=== PATIENT | female | born 1930 | race Caucasian/White ===

== ENCOUNTER 2017-12-23 11:02 | Inpatient (IN) | payer OTHER ==
[~2017-12-23] VITALS: Ht 160 cm; Wt 78.0 kg
[~2017-12-23 11:02] MED LIST: APIX5TAB OR; DIGO1TAB35 PO; LOSA25TA9 PO
[2017-12-23 11:54] LABS: Basophils # (auto) 0 uL; Basophils % (auto) 0.2 % (0.0-2.0); Eosinophils # (auto) 0 uL; Eosinophils % (auto) 0.1 % (0.0-7.0); Hematocrit 40.2 % (36.0-46.0); Hemoglobin 13.4 g/dL (12.2-16.2); Lymphocytes # (auto) 0.8 uL; Mean Corpuscular Hemoglobin 32.1 pg (28.0-32.0); Mean Corpuscular Hgb Conc. 33.3 g/dL (32.0-36.0); Mean Corpuscular Volume 96.2 fL (80.0-100.0); Monocytes # (auto) 0.4 uL; Monocytes % (auto) 4.3 % (0.0-12.0); Neutrophils # (auto) 8.7 uL; Neutrophils % (auto) 87.4 % (37.0-80.0); Platelet Count (auto) 181 10^3/uL (140-450); Red Blood Cells 4.18 10^6/uL (4.0-5.20); Red Cell Distribution Width 14.3 % (11.8-14.3); White Blood Cell 9.9 10^3/uL (4.4-10.8)
[2017-12-23 12:38] LABS: Alanine Aminotransferase 29 U/L (13-56); Alkaline Phosphatase 90 U/L (45-117); Anion Gap 10 (5-15); Aspartate Aminotransferase 29 U/L (15-37); BUN/Creatinine Ratio 14.9; Bilirubin, Total 0.7 mg/dL (0.2-1.0); Blood Alcohol < 3.0 mg/dL (0-5); Blood Urea Nitrogen 15 mg/dL (7-18); Carbon Dioxide 19 mmol/L (21-32); Chloride 109 mmol/L (98-107); GFR African American 67 mL/min; GFR Non-African American 55 mL/min; Glucose 105 mg/dL (74-106); Potassium 3.4 mmol/L (3.5-5.1); Sodium 138 mmol/L (136-145); Total Protein 7.9 g/dL (6.4-8.2)
[2017-12-23] MEDS ORDERED: NITROGLYCERIN 0.4 MG SL TAB SL PRN (16:30)
[2017-12-23] MEDS ORDERED: cefTRIAXone 1GM/10ml IVPUSH 10 ML IV ONE (16:30)
[2017-12-23] MEDS ORDERED: MORPHINE SULFATE 4 MG/ML SYR/VIAL IV PRN (16:30)
[2017-12-23] MEDS: FLORASTOR (S. BOULARDII) 250 MG CAP PO SCH (17:05)
[2017-12-23] MEDS: SOD CHL 0.9%/ KCL 20MEQ 1,000 ML IV SCH (17:05)
[2017-12-23 17:36] LABS: Urine Bacteria FEW /hpf (None Seen); Urine Blood 2+ /uL (Negative); Urine Hyaline Cast FEW /lpf (0 - 2); Urine Mucus FEW (None Seen); Urine WBC 3 /hpf (0 - 5)
[2017-12-23] MEDS: VANCOMYCIN HCL 125MG/5ML ORAL SOL PO SCH (18:15)
[2017-12-23 21:00] VITALS: BP 138/66
[2017-12-23 21:46] VITALS: BP 138/66
[2017-12-23] MEDS: ACETAMINOPHEN 325 MG TAB PO PRN (22:02)
[2017-12-23] MEDS ORDERED: NITR0.4S29 SL (23:24)
[2017-12-23] MEDS ORDERED: ATO40T PO (23:24)
[2017-12-23 23:34] VITALS: BP 138/66
[2017-12-24] VITALS (7 sets, daily range): BP systolic 107–124; BP diastolic 44–63
[2017-12-24] MEDS: VANCOMYCIN HCL 125MG/5ML ORAL SOL PO SCH ×5 (00:12→23:56)
[2017-12-24 05:40] LABS: Basophils # (auto) 0 uL; Basophils % (auto) 0.2 % (0.0-2.0); Eosinophils # (auto) 0 uL; Hematocrit 37.4 % (36.0-46.0); Hemoglobin 12.7 g/dL (12.2-16.2); Lymphocytes # (auto) 0.4 uL; Lymphocytes % (auto) 3.6 % (10.0-50.0); Mean Corpuscular Hemoglobin 32.7 pg (28.0-32.0); Mean Corpuscular Hgb Conc. 33.9 g/dL (32.0-36.0); Mean Corpuscular Volume 96.3 fL (80.0-100.0); Monocytes # (auto) 0.3 uL; Neutrophils # (auto) 9.3 uL; Neutrophils % (auto) 93.2 % (37.0-80.0); Platelet Count (auto) 158 10^3/uL (140-450); Red Blood Cells 3.89 10^6/uL (4.0-5.20); Red Cell Distribution Width 14.8 % (11.8-14.3)
[2017-12-24 06:03] LABS: BUN/Creatinine Ratio 16.5; Calcium 7.3 mg/dL (8.5-10.1); Potassium 3.7 mmol/L (3.5-5.1)
[2017-12-24] MEDS: ACETAMINOPHEN 325 MG TAB PO PRN ×2 (06:25→16:57)
[2017-12-24] MEDS: SOD CHL 0.9%/ KCL 20MEQ 1,000 ML IV SCH (06:31)
[2017-12-24] MEDS ORDERED: cefTRIAXone 1GM/10ml IVPUSH 10 ML IV SCH (09:00)
[2017-12-24] MEDS ORDERED: MAGNESIUM SULFATE 1GM/100ML 100 ML IV PRN (09:00)
[2017-12-24] MEDS: SODIUM CHLORIDE 0.9% 1,000 ML IV SCH ×2 (09:00→23:56)
[2017-12-24] MEDS ORDERED: POTASSIUM CHL 20 Meq TABLET PO ONE (09:00)
[2017-12-24] MEDS ORDERED: SODIUM CHLORIDE 0.9% 250 ML IV ONE (09:15)
[2017-12-24] MEDS ORDERED: cloNIDine HCL 0.1 MG TAB PO PRN (09:15)
[2017-12-24] MEDS: PANTOPRAZOLE 40 MG TAB PO SCH (10:19)
[2017-12-24] MEDS: FLORASTOR (S. BOULARDII) 250 MG CAP PO SCH (10:19)
[2017-12-24] MEDS: ENOXAPARIN SOD 30 MG/0.3 ML SYRINGE SC SCH (10:19)
[2017-12-25 05:00] VITALS: BP 117/52
[2017-12-25] MEDS: VANCOMYCIN HCL 125MG/5ML ORAL SOL PO SCH ×3 (06:11→18:46)
[2017-12-25 06:19] LABS: BUN/Creatinine Ratio 25.8; Calcium 7.6 mg/dL (8.5-10.1); Magnesium 2.1 mg/dL (1.6-2.6); Potassium 4.1 mmol/L (3.5-5.1)
[2017-12-25 08:00] VITALS: BP 130/51
[2017-12-25] MEDS: PANTOPRAZOLE 40 MG TAB PO SCH (09:17)
[2017-12-25] MEDS: FLORASTOR (S. BOULARDII) 250 MG CAP PO SCH (09:17)
[2017-12-25] MEDS: DIPHENOXYLATE W/ATROPINE 2.5 MG TAB PO PRN ×2 (09:17→22:53)
[2017-12-25] MEDS: ENOXAPARIN SOD 30 MG/0.3 ML SYRINGE SC SCH (09:18)
[2017-12-25 09:29] VITALS: BP 130/51
[2017-12-25] MEDS: CHOLESTYRAMINE 4 GM POWDER GT SCH ×2 (11:11→22:40)
[2017-12-25] MEDS: SODIUM CHLORIDE 0.9% 1,000 ML IV SCH (12:40)
[2017-12-25 13:00] VITALS: BP 123/73
[2017-12-25] MEDS: metroNIDAZOLE 500MG/100ML 100 ML IV SCH ×2 (14:37→22:40)
[2017-12-25 16:56] VITALS: BP 117/61
[2017-12-25 22:00] VITALS: BP 127/62
[2017-12-26] MEDS: SODIUM CHLORIDE 0.9% 1,000 ML IV SCH ×2 (00:15→15:34)
[2017-12-26] MEDS: VANCOMYCIN HCL 125MG/5ML ORAL SOL PO SCH ×3 (00:15→12:38)
[2017-12-26 05:09] VITALS: BP 107/55
[2017-12-26] MEDS: metroNIDAZOLE 500MG/100ML 100 ML IV SCH ×3 (05:51→22:24)
[2017-12-26 07:05] LABS: Calcium 7.6 mg/dL (8.5-10.1); Magnesium 2.1 mg/dL (1.6-2.6); Potassium 3.8 mmol/L (3.5-5.1)
[2017-12-26 07:07] LABS: BUN/Creatinine Ratio 21.2
[2017-12-26] MEDS ORDERED: POTASSIUM CHL 10% (20 MEQ/15ML) 15ml ORAL SOLN PO ONE (07:30)
[2017-12-26 08:00] VITALS: BP 125/73
[2017-12-26 08:58] VITALS: BP 125/73
[2017-12-26] MEDS: FLORASTOR (S. BOULARDII) 250 MG CAP PO SCH (09:49)
[2017-12-26] MEDS: PANTOPRAZOLE 40 MG TAB PO SCH (09:50)
[2017-12-26] MEDS: ENOXAPARIN SOD 30 MG/0.3 ML SYRINGE SC SCH (09:52)
[2017-12-26] MEDS: CHOLESTYRAMINE 4 GM POWDER GT SCH ×2 (12:38→22:24)
[2017-12-26 13:00] VITALS: BP 110/65
[2017-12-26] MEDS: DIPHENOXYLATE W/ATROPINE 2.5 MG TAB PO PRN (14:09)
[2017-12-26 16:52] VITALS: BP 94/51
[2017-12-26] MEDS: VANCOMYCIN HCL 500MG/5ML ORAL SOL PO SCH ×2 (18:15→23:50)
[2017-12-26 22:00] VITALS: BP 113/64
[2017-12-27] MEDS: SODIUM CHLORIDE 0.9% 1,000 ML IV SCH ×2 (03:19→18:30)
[2017-12-27 05:00] VITALS: BP 99/57
[2017-12-27] MEDS: VANCOMYCIN HCL 500MG/5ML ORAL SOL PO SCH ×3 (05:45→18:00)
[2017-12-27] MEDS: metroNIDAZOLE 500MG/100ML 100 ML IV SCH ×3 (05:45→21:47)
[2017-12-27] MEDS: DIPHENOXYLATE W/ATROPINE 2.5 MG TAB PO PRN (05:46)
[2017-12-27 07:06] LABS: Basophils # (auto) 0 uL; Basophils % (auto) 0.3 % (0.0-2.0); Eosinophils # (auto) 0.2 uL; Eosinophils % (auto) 2.4 % (0.0-7.0); Hematocrit 29.3 % (36.0-46.0); Hemoglobin 10.1 g/dL (12.2-16.2); Lymphocytes # (auto) 1.3 uL; Lymphocytes % (auto) 20.1 % (10.0-50.0); Mean Corpuscular Hemoglobin 32.8 pg (28.0-32.0); Mean Corpuscular Hgb Conc. 34.4 g/dL (32.0-36.0); Mean Corpuscular Volume 95.3 fL (80.0-100.0); Monocytes # (auto) 0.4 uL; Monocytes % (auto) 6.6 % (0.0-12.0); Neutrophils # (auto) 4.6 uL; Neutrophils % (auto) 70.6 % (37.0-80.0); Platelet Count (auto) 151 10^3/uL (140-450); Red Blood Cells 3.08 10^6/uL (4.0-5.20); Red Cell Distribution Width 14.3 % (11.8-14.3); White Blood Cell 6.6 10^3/uL (4.4-10.8)
[2017-12-27 07:26] LABS: BUN/Creatinine Ratio 15.5; Calcium 7.4 mg/dL (8.5-10.1); Magnesium 1.8 mg/dL (1.6-2.6)
[2017-12-27 09:25] VITALS: BP 110/63
[2017-12-27] MEDS: CHOLESTYRAMINE 4 GM POWDER GT SCH ×2 (11:15→23:00)
[2017-12-27] MEDS: MAGNESIUM SULFATE 1GM/100ML 100 ML IV SCH ×2 (11:16→14:11)
[2017-12-27] MEDS: PANTOPRAZOLE 40 MG TAB PO SCH (11:16)
[2017-12-27] MEDS: ENOXAPARIN SOD 30 MG/0.3 ML SYRINGE SC SCH (11:16)
[2017-12-27] MEDS: FLORASTOR (S. BOULARDII) 250 MG CAP PO SCH (11:16)
[2017-12-27 13:46] VITALS: BP 115/67
[2017-12-27 16:47] VITALS: BP 112/47
[2017-12-27 22:00] VITALS: BP 119/58
[2017-12-28 05:00] VITALS: BP 132/67
[2017-12-28] MEDS: SODIUM CHLORIDE 0.9% 1,000 ML IV SCH ×2 (06:20→21:02)
[2017-12-28] MEDS: VANCOMYCIN HCL 500MG/5ML ORAL SOL PO SCH ×3 (06:30→13:28)
[2017-12-28] MEDS: metroNIDAZOLE 500MG/100ML 100 ML IV SCH ×3 (06:30→22:33)
[2017-12-28 06:46] LABS: BUN/Creatinine Ratio 10.9; Calcium 7.3 mg/dL (8.5-10.1); Magnesium 2.3 mg/dL (1.6-2.6); Potassium 3.9 mmol/L (3.5-5.1)
[2017-12-28 09:09] VITALS: BP 147/72
[2017-12-28] MEDS: FLORASTOR (S. BOULARDII) 250 MG CAP PO SCH (10:44)
[2017-12-28] MEDS: PANTOPRAZOLE 40 MG TAB PO SCH (10:45)
[2017-12-28] MEDS: CHOLESTYRAMINE 4 GM POWDER GT SCH ×2 (10:52→22:33)
[2017-12-28] MEDS: ENOXAPARIN SOD 30 MG/0.3 ML SYRINGE SC SCH (10:52)
[2017-12-28] MEDS ORDERED: POTASSIUM CHL 20 Meq TABLET PO ONE (11:45)
[2017-12-28 12:06] VITALS: BP 124/65
[2017-12-28 17:00] VITALS: BP 119/81
[2017-12-28] MEDS: VANCOMYCIN HCL 125MG/5ML ORAL SOL PO SCH ×2 (18:29→23:57)
[2017-12-28 22:00] VITALS: BP 114/54
[2017-12-29 05:06] VITALS: BP 116/57
[2017-12-29 05:58] LABS: BUN/Creatinine Ratio 6.2; Calcium 7.6 mg/dL (8.5-10.1); Magnesium 1.7 mg/dL (1.6-2.6); Potassium 4.2 mmol/L (3.5-5.1)
[2017-12-29] MEDS: VANCOMYCIN HCL 125MG/5ML ORAL SOL PO SCH ×2 (06:03→11:50)
[2017-12-29] MEDS: metroNIDAZOLE 500MG/100ML 100 ML IV SCH ×2 (06:04→14:00)
[2017-12-29 09:00] VITALS: BP 140/66
[2017-12-29] MEDS: PANTOPRAZOLE 40 MG TAB PO SCH (10:39)
[2017-12-29] MEDS: MAGNESIUM SULFATE 1GM/100ML 100 ML IV SCH ×2 (10:39→11:50)
[2017-12-29] MEDS: FLORASTOR (S. BOULARDII) 250 MG CAP PO SCH (10:39)
[2017-12-29] MEDS: SODIUM CHLORIDE 0.9% 1,000 ML IV SCH (10:40)
[2017-12-29] MEDS: ENOXAPARIN SOD 30 MG/0.3 ML SYRINGE SC SCH (10:40)
[2017-12-29] MEDS: CHOLESTYRAMINE 4 GM POWDER GT SCH (11:00)
[2017-12-29 13:00] VITALS: BP 129/56
== END 2017-12-29 14:51 | disposition home or self-care (01) | DRG 871 ==
LOC: ER 11:02 → EDUNIT# 11:02 → EDBD 11:02 → TELE 11:03 → TELE-CENTR 20:42
PROVIDERS: ADMIT Internal Medicine; ATTEND Family Medicine
DX: A41.9 Sepsis, unspecified organism (principal); G92 Toxic encephalopathy; A04.71 Enterocolitis due to Clostridium difficile, recurrent; G45.9 Transient cerebral ischemic attack, unspecified; I48.91 Unspecified atrial fibrillation; E86.0 Dehydration; F03.90 Unspecified dementia, unspecified severity, without behavioral disturbance, psychotic disturbance, mood disturbance, and anxiety; I67.2 Cerebral atherosclerosis; I10 Essential (primary) hypertension; Z90.710 Acquired absence of both cervix and uterus; Z79.01 Long term (current) use of anticoagulants; Z88.0 Allergy status to penicillin; Z90.49 Acquired absence of other specified parts of digestive tract
CPT/HCPCS: 36415; 70450; 71045; 74176; 80048; 80053; 80320; 81001; 83735; 84443; 84484; 85025; 87081; 87086; 87493; 93005; 93306; 96365; 96375; 97110; 97163; 99291; J3490

== ENCOUNTER → 2020-03-31 | Emergency (ER) | payer MEDICARE, OTHER ==
[~2020-03-31] VITALS: Ht 157.5 cm; Wt 72.6 kg
[~2020-03-31] MED LIST changes: +ATO40T PO; +LOSA25TA38 PO; -LOSA25TA9 PO; +NITR0.4S29 SL; +POTASSIUM EFFERVESENT TAB 25 MEQ PO ONE; +cefTRIAXone 1GM/50ML D5W 50 ML IV ONE
[2020-03-31 11:56] LABS: Basophils # (auto) 0 10 ^3/uL (0-0.2); Basophils % (auto) 0.6 % (0.0-2.0); Eosinophils # (auto) 0 10 ^3/uL (0-0.8); Eosinophils % (auto) 0.9 % (0.0-7.0); Hematocrit 43.7 % (36.0-46.0); Lymphocytes # (auto) 1.1 10 ^3/uL (0.4-5.4); Mean Corpuscular Hemoglobin 32.2 pg (28.0-32.0); Mean Corpuscular Volume 100.5 fL (80.0-100.0); Monocytes # (auto) 0.4 10 ^3/uL (0-1.3); Monocytes % (auto) 7.4 % (0.0-12.0); Neutrophils # (auto) 3.8 10 ^3/uL (1.6-8.6); Neutrophils % (auto) 70.1 % (37.0-80.0); Platelet Count (auto) 253 10^3/uL (140-450); Red Blood Cells 4.35 10^6/uL (4.0-5.20); Red Cell Distribution Width 13.5 % (11.8-14.3); White Blood Cell 5.4 10^3/uL (4.4-10.8)
[2020-03-31 12:33] LABS: Alanine Aminotransferase 13 U/L (13-56); Albumin 3.3 g/dL (3.4-5.0); Anion Gap 5 (5-15); Aspartate Aminotransferase 13 U/L (15-37); Blood Urea Nitrogen 11 mg/dL (7-18); Calcium 8.5 mg/dL (8.5-10.1); Carbon Dioxide 25 mmol/L (21-32); Chloride 110 mmol/L (98-107); Glucose 117 mg/dL (74-106); Potassium 3.4 mmol/L (3.5-5.1); Sodium 140 mmol/L (136-145)
[2020-03-31 12:38] LABS: Alkaline Phosphatase 68 U/L (45-117); Bilirubin, Total 0.7 mg/dL (0.2-1.0); GFR African American 60 mL/min; GFR Non-African American 50 mL/min; Total Protein 8.2 g/dL (6.4-8.2)
[2020-03-31 13:03] LABS: Urine Bacteria NONE SEEN /hpf (None Seen); Urine Blood 2+ /uL (Negative); Urine Mucus FEW (None Seen); Urine WBC 5 /hpf (0 - 5)
[2020-03-31 15:41] VITALS: BP 160/84
== END | disposition home or self-care (01) ==
LOC: EDUNIT# 10:41 → ER 11:04 → EDBD 11:04
DX: I48.91 Unspecified atrial fibrillation (principal); E78.5 Hyperlipidemia, unspecified; I10 Essential (primary) hypertension; Z90.49 Acquired absence of other specified parts of digestive tract; Z90.710 Acquired absence of both cervix and uterus; Z88.0 Allergy status to penicillin
CPT/HCPCS: 36415; 80053; 80162; 81001; 83880; 84484; 85025; 96365; 99285; J0696; 93005

== ENCOUNTER 2021-03-02 10:00 | Inpatient (IN) | payer MEDICARE, OTHER ==
[~2021-03-02] VITALS: Ht 172.7 cm; Wt 87.4 kg
[~2021-03-02 10:00] MED LIST changes: -POTASSIUM EFFERVESENT TAB 25 MEQ PO ONE; -cefTRIAXone 1GM/50ML D5W 50 ML IV ONE
[2021-03-02 10:52] LABS: Basophils # (auto) 0 10 ^3/uL (0-0.2); Basophils % (auto) 0.4 % (0.0-2.0); Eosinophils # (auto) 0 10 ^3/uL (0-0.8); Eosinophils % (auto) 0.1 % (0.0-7.0); Hematocrit 46.1 % (36.0-46.0); Hemoglobin 15.2 g/dL (12.2-16.2); Mean Corpuscular Hemoglobin 32.4 pg (28.0-32.0); Mean Corpuscular Volume 98.3 fL (80.0-100.0); Monocytes # (auto) 0.7 10 ^3/uL (0-1.3); Monocytes % (auto) 6.2 % (0.0-12.0); Neutrophils # (auto) 10.2 10 ^3/uL (1.6-8.6); Neutrophils % (auto) 85.3 % (37.0-80.0); Red Blood Cells 4.69 10^6/uL (4.0-5.20)
[2021-03-02 11:38] LABS: Albumin 3.4 g/dL (3.4-5.0); Anion Gap 9 (5-15); Blood Urea Nitrogen 21 mg/dL (7-18); Calcium 8.4 mg/dL (8.5-10.1); Carbon Dioxide 25 mmol/L (21-32); Chloride 113 mmol/L (98-107); Glucose 119 mg/dL (74-106); Potassium 3.3 mmol/L (3.5-5.1); Sodium 147 mmol/L (136-145)
[2021-03-02 11:40] LABS: Alanine Aminotransferase 15 U/L (13-56); Aspartate Aminotransferase 18 U/L (15-37); BUN/Creatinine Ratio 20.4; GFR African American 65 mL/min; GFR Non-African American 54 mL/min
[2021-03-02 11:45] LABS: Alkaline Phosphatase 59 U/L (45-117); Bilirubin, Total 1.4 mg/dL (0.2-1.0); Total Protein 8.5 g/dL (6.4-8.2)
[2021-03-02 15:37] LABS: Urine Bacteria FEW /hpf (None Seen); Urine Blood 3+ /uL (Negative); Urine Hyaline Cast MOD /lpf (0 - 2); Urine Mucus FEW (None Seen); Urine Specific Gravity 1.025 (1.001-1.035); Urine WBC 2 /hpf (0 - 5)
[2021-03-02] MEDS ORDERED: POTASSIUM CHL 20 Meq TABLET PO ONE (16:00)
[2021-03-02] MEDS ORDERED: LACTATED RINGER'S 1,000 ML IV ONE ×2 (16:00→20:15)
[2021-03-02] MEDS ORDERED: NITROGLYCERIN 0.4 MG SL TAB SL PRN ×2 (16:00→20:45)
[2021-03-02] MEDS ORDERED: MORPHINE SULFATE INJECTION 2 MG/2 ML SYRG IV PRN ×3 (16:00→20:45)
[2021-03-02] MEDS ORDERED: CLINDAMYCIN 300MG IV 50 ML IV ONE (20:15)
[2021-03-02] MEDS ORDERED: cefTRIAXone 1GM/50ML D5W 50 ML IV ONE (20:15)
[2021-03-02] MEDS ORDERED: NITROGLYCERIN 0.4 MG SL TAB SL SCH (20:15)
[2021-03-02] MEDS ORDERED: DOCUSATE SOD 100 MG CAP PO PRN (20:45)
[2021-03-02] MEDS ORDERED: ONDANSETRON HCL 4 MG/2 ML VIAL IV PRN (20:45)
[2021-03-02] MEDS ORDERED: LORazepam 0.5 MG TAB PO PRN (20:45)
[2021-03-02] MEDS ORDERED: HYDROcodone-ACET 5/325MG TAB PO PRN (20:45)
[2021-03-02] MEDS ORDERED: ACETAMINOPHEN 325 MG TAB PO PRN (20:45)
[2021-03-02] MEDS ORDERED: ALUM & MAG HYDROX-SIMETH LIQ(MAALOX) 30 ML PO PRN (20:45)
[2021-03-02] MEDS ORDERED: AZTREONAM 1GM INJ 1 GM in D5W 5% 50 ML IV ONE (21:00)
[2021-03-02] MEDS: POTASSIUM CHLORIDE 20 MEQ in D5W/LACTATED RINGERS 1,000 ML IV SCH ×2 (22:09→23:55)
[2021-03-02] MEDS: APIXABAN 5 MG TAB PO SCH (22:26)
[2021-03-02 22:45] VITALS: BP 153/104
[2021-03-02 22:57] LABS: Cholesterol 131 mg/dL (< 200); HDL Cholesterol 34 mg/dL (40-59); LDL Cholesterol 86 mg/dL (< 100); Triglycerides 121 mg/dL (< 150)
[2021-03-02 23:36] LABS: Urine Bacteria NONE SEEN /hpf (None Seen); Urine Blood 3+ /uL (Negative); Urine Hyaline Cast FEW /lpf (0 - 2); Urine Mucus MODERATE (None Seen); Urine Specific Gravity 1.022 (1.001-1.035); Urine WBC 96 /hpf (0 - 5)
[2021-03-03] MEDS: AZTREONAM 1GM INJ 1 GM in D5W 5% 50 ML IV SCH ×2 (05:00→13:00)
[2021-03-03 05:33] VITALS: BP 184/89
[2021-03-03 05:38] VITALS: BP 155/99
[2021-03-03] MEDS ORDERED: hydrALAZINE HCL 20 MG/ML VL ONE (05:43)
[2021-03-03] MEDS ORDERED: hydrALAZINE HCL 20 MG/ML VL IV PRN (05:45)
[2021-03-03] MEDS: CLINDAMYCIN 600MG IV 50 ML IV SCH ×3 (07:00→22:32)
[2021-03-03 09:00] VITALS: BP 114/64
[2021-03-03] MEDS ORDERED: cefTRIAXone 1GM/50ML D5W 50 ML IV SCH (09:00)
[2021-03-03] MEDS: LOSARTAN POTASSIUM 25 MG TAB PO SCH (09:32)
[2021-03-03] MEDS: APIXABAN 5 MG TAB PO SCH ×2 (09:34→21:42)
[2021-03-03] MEDS: DIGOXIN 0.125 MG TAB PO SCH (09:34)
[2021-03-03] MEDS ORDERED: levoFLOXacin 500MG 100 ML IV ONE (14:45)
[2021-03-03 17:00] VITALS: BP 123/73
[2021-03-03] MEDS: POTASSIUM CHLORIDE 20 MEQ in D5W/LACTATED RINGERS 1,000 ML IV SCH ×2 (18:19→22:00)
[2021-03-03 22:00] VITALS: BP 108/58
[2021-03-03] MEDS ORDERED: LORazepam 2MG/ML-1ML VIAL IV PRN (23:00)
[2021-03-04] MEDS: CLINDAMYCIN 600MG IV 50 ML IV SCH ×3 (05:38→21:37)
[2021-03-04 06:35] LABS: BUN/Creatinine Ratio 25.6; Calcium 7.7 mg/dL (8.5-10.1); Potassium 3.2 mmol/L (3.5-5.1)
[2021-03-04] MEDS: POTASSIUM CHLORIDE 20 MEQ in D5W/LACTATED RINGERS 1,000 ML IV SCH ×2 (07:00→20:09)
[2021-03-04 08:00] VITALS: BP 114/72
[2021-03-04 08:30] VITALS: BP_SYST 108; BP_SYST 116; BP_DIAS 58; BP_DIAS 68
[2021-03-04] MEDS: DIGOXIN 0.125 MG TAB PO SCH (09:50)
[2021-03-04] MEDS: LOSARTAN POTASSIUM 25 MG TAB PO SCH (09:51)
[2021-03-04] MEDS: APIXABAN 5 MG TAB PO SCH ×2 (09:55→21:37)
[2021-03-04] MEDS: levoFLOXacin 500MG 100 ML IV SCH (09:57)
[2021-03-04] MEDS ORDERED: POTASSIUM CHL 20 Meq TABLET PO ONE (10:00)
[2021-03-04 12:28] VITALS: BP 121/73
[2021-03-04] MEDS: ATORVASTATIN 20 MG TAB PO SCH (22:00)
[2021-03-05 05:00] VITALS: BP 104/69
[2021-03-05] MEDS: CLINDAMYCIN 600MG IV 50 ML IV SCH ×3 (06:16→22:14)
[2021-03-05 06:42] LABS: Basophils # (auto) 0 10 ^3/uL (0-0.2); Basophils % (auto) 0.5 % (0.0-2.0); Eosinophils # (auto) 0.1 10 ^3/uL (0-0.8); Hematocrit 34.8 % (36.0-46.0); Hemoglobin 11.8 g/dL (12.2-16.2); Lymphocytes % (auto) 14.2 % (10.0-50.0); Mean Corpuscular Volume 97.3 fL (80.0-100.0); Monocytes # (auto) 0.6 10 ^3/uL (0-1.3); Monocytes % (auto) 8.3 % (0.0-12.0); Neutrophils # (auto) 5.3 10 ^3/uL (1.6-8.6); Red Blood Cells 3.58 10^6/uL (4.0-5.20); Red Cell Distribution Width 13.8 % (11.8-14.3)
[2021-03-05 06:58] LABS: Potassium 4.1 mmol/L (3.5-5.1)
[2021-03-05 07:16] LABS: Albumin 2.3 g/dL (3.4-5.0); BUN/Creatinine Ratio 21.1; Bilirubin, Total 0.3 mg/dL (0.2-1.0); Calcium 7.5 mg/dL (8.5-10.1); Total Protein 6.4 g/dL (6.4-8.2)
[2021-03-05] MEDS: POTASSIUM CHLORIDE 20 MEQ in D5W/LACTATED RINGERS 1,000 ML IV SCH ×2 (08:51→19:11)
[2021-03-05 09:00] VITALS: BP 129/70
[2021-03-05] MEDS: levoFLOXacin 500MG 100 ML IV SCH (11:18)
[2021-03-05] MEDS: APIXABAN 5 MG TAB PO SCH ×2 (11:18→20:57)
[2021-03-05] MEDS: DIGOXIN 0.125 MG TAB PO SCH (11:19)
[2021-03-05] MEDS: LOSARTAN POTASSIUM 25 MG TAB PO SCH (11:19)
[2021-03-05 14:34] LABS: Folate (Folic Acid) 2.47 ng/mL (5.38-24)
[2021-03-05 17:00] VITALS: BP 146/89
[2021-03-05] MEDS: ATORVASTATIN 20 MG TAB PO SCH (20:57)
[2021-03-05 21:46] VITALS: BP 143/81
[2021-03-05] MEDS ORDERED: CYANOCOBALAMIN (B-12) 1000 MCG/1 ML VIAL IM ONE (22:00)
[2021-03-06 05:00] VITALS: BP 144/76
[2021-03-06] MEDS: CLINDAMYCIN 600MG IV 50 ML IV SCH (05:35)
[2021-03-06] MEDS: POTASSIUM CHLORIDE 20 MEQ in D5W/LACTATED RINGERS 1,000 ML IV SCH ×2 (05:35→10:28)
[2021-03-06 09:00] VITALS: BP 137/84
[2021-03-06] MEDS: levoFLOXacin 500MG 100 ML IV SCH (09:52)
[2021-03-06] MEDS: CYANOCOBALAMIN 500 MCG TAB PO SCH (09:53)
[2021-03-06] MEDS: APIXABAN 5 MG TAB PO SCH ×2 (09:53→21:37)
[2021-03-06] MEDS: DIGOXIN 0.125 MG TAB PO SCH (09:53)
[2021-03-06] MEDS: LOSARTAN POTASSIUM 25 MG TAB PO SCH (09:54)
[2021-03-06 12:35] VITALS: BP 147/97
[2021-03-06] MEDS: FOLIC ACID 1 MG in D5W 5% 50 ML INJ SCH (12:51)
[2021-03-06 16:34] VITALS: BP 139/89
[2021-03-06] MEDS: ATORVASTATIN 20 MG TAB PO SCH (21:37)
[2021-03-06 22:00] VITALS: BP 146/82
[2021-03-07 05:00] VITALS: BP 136/73
[2021-03-07 06:02] LABS: Basophils # (auto) 0.1 10 ^3/uL (0-0.2); Basophils % (auto) 0.8 % (0.0-2.0); Eosinophils # (auto) 0.1 10 ^3/uL (0-0.8); Eosinophils % (auto) 1.8 % (0.0-7.0); Hematocrit 35.3 % (36.0-46.0); Lymphocytes # (auto) 1.1 10 ^3/uL (0.4-5.4); Lymphocytes % (auto) 18.4 % (10.0-50.0); Mean Corpuscular Hemoglobin 33.1 pg (28.0-32.0); Mean Corpuscular Hgb Conc. 34.1 g/dL (32.0-36.0); Monocytes # (auto) 0.5 10 ^3/uL (0-1.3); Monocytes % (auto) 8.7 % (0.0-12.0); Neutrophils # (auto) 4.3 10 ^3/uL (1.6-8.6); Neutrophils % (auto) 70.3 % (37.0-80.0); Red Blood Cells 3.63 10^6/uL (4.0-5.20); White Blood Cell 6.1 10^3/uL (4.4-10.8)
[2021-03-07] MEDS: POTASSIUM CHLORIDE 20 MEQ in D5W/LACTATED RINGERS 1,000 ML IV SCH (06:16)
[2021-03-07 06:22] LABS: BUN/Creatinine Ratio 13.3; Calcium 7.7 mg/dL (8.5-10.1); Magnesium 1.3 mg/dL (1.6-2.6); Potassium 3.8 mmol/L (3.5-5.1)
[2021-03-07 09:00] VITALS: BP 153/83
[2021-03-07] MEDS: FOLIC ACID 1 MG in D5W 5% 50 ML INJ SCH (10:00)
[2021-03-07] MEDS: MAGNESIUM OXIDE 400 MG TAB PO SCH ×2 (10:20→21:34)
[2021-03-07] MEDS: DIGOXIN 0.125 MG TAB PO SCH (10:20)
[2021-03-07] MEDS: CYANOCOBALAMIN 500 MCG TAB PO SCH (10:20)
[2021-03-07] MEDS: APIXABAN 5 MG TAB PO SCH ×2 (10:20→21:35)
[2021-03-07] MEDS: LOSARTAN POTASSIUM 25 MG TAB PO SCH (10:20)
[2021-03-07] MEDS: MAGNESIUM SULFATE 1GM/100ML 100 ML IV SCH ×2 (10:21→12:14)
[2021-03-07] MEDS: levoFLOXacin 500MG 100 ML IV SCH (10:21)
[2021-03-07 10:41] VITALS: BP 156/64
[2021-03-07 12:40] VITALS: BP 125/70
[2021-03-07 16:34] VITALS: BP 143/84
[2021-03-07] MEDS: ATORVASTATIN 20 MG TAB PO SCH (21:35)
[2021-03-07 22:00] VITALS: BP 146/87
[2021-03-08] MEDS: POTASSIUM CHLORIDE 20 MEQ in D5W/LACTATED RINGERS 1,000 ML IV SCH (01:54)
[2021-03-08 05:00] VITALS: BP 147/87
[2021-03-08 08:00] VITALS: BP 165/80
[2021-03-08] MEDS: levoFLOXacin 500MG 100 ML IV SCH (09:00)
[2021-03-08] MEDS: MAGNESIUM OXIDE 400 MG TAB PO SCH ×2 (09:00→22:17)
[2021-03-08] MEDS: DIGOXIN 0.125 MG TAB PO SCH (09:00)
[2021-03-08] MEDS: CYANOCOBALAMIN 500 MCG TAB PO SCH (09:01)
[2021-03-08] MEDS: LOSARTAN POTASSIUM 25 MG TAB PO SCH (09:01)
[2021-03-08] MEDS: APIXABAN 5 MG TAB PO SCH ×2 (09:01→22:17)
[2021-03-08 09:27] VITALS: BP 165/80
[2021-03-08] MEDS: FOLIC ACID 1 MG in D5W 5% 50 ML INJ SCH (10:36)
[2021-03-08 13:00] VITALS: BP 142/79
[2021-03-08 16:30] VITALS: BP 130/74
[2021-03-08 21:52] VITALS: BP 149/95
[2021-03-08] MEDS: ATORVASTATIN 20 MG TAB PO SCH (22:17)
[2021-03-09] MEDS ORDERED: levoFLOXacin 500 MG TAB PO SCH (10:00)
== END 2021-03-09 01:00 | DRG 71 ==
LOC: ER 10:00 → EDBD 10:00 → TELE 16:00 → TELE-EAST 22:42
PROVIDERS: ADMIT Hospitalist; ATTEND Internal Medicine Geriatric Medicine
DX: G93.41 Metabolic encephalopathy (principal); N17.9 Acute kidney failure, unspecified; N39.0 Urinary tract infection, site not specified; I13.0 Hypertensive heart and chronic kidney disease with heart failure and stage 1 through stage 4 chronic kidney disease, or unspecified chronic kidney disease; I48.19 Other persistent atrial fibrillation; I50.9 Heart failure, unspecified; G30.9 Alzheimer's disease, unspecified; G62.9 Polyneuropathy, unspecified; R62.7 Adult failure to thrive; N18.31 Chronic kidney disease, stage 3a; R29.810 Facial weakness; E86.0 Dehydration; D72.829 Elevated white blood cell count, unspecified; Z20.822 Contact with and (suspected) exposure to COVID-19; E53.8 Deficiency of other specified B group vitamins; F02.80 Dementia in other diseases classified elsewhere, unspecified severity, without behavioral disturbance, psychotic disturbance, mood disturbance, and anxiety; E78.00 Pure hypercholesterolemia, unspecified; I25.2 Old myocardial infarction; Z79.01 Long term (current) use of anticoagulants; Z79.899 Other long term (current) drug therapy; Z82.49 Family history of ischemic heart disease and other diseases of the circulatory system; Z86.73 Personal history of transient ischemic attack (TIA), and cerebral infarction without residual deficits; Z90.710 Acquired absence of both cervix and uterus; Z90.49 Acquired absence of other specified parts of digestive tract; Z88.0 Allergy status to penicillin
CPT/HCPCS: 36415; 51702; 70450; 70551; 80048; 80053; 80061; 81001; 82607; 82746; 83036; 83735; 84443; 84484; 85025; 87040; 87086; 87426; 93005; 93306; 93886; 95819; 96360; 96361; 97110; 97116; 97163; 97530; G0378; J1956; J3490; J7060

== ENCOUNTER 2021-04-07 02:03 | Emergency (ER) | payer OTHER ==
[~2021-04-07] VITALS: Ht 165.1 cm; Wt 90.7 kg
[2021-04-07 02:52] LABS: Basophils # (auto) 0 10 ^3/uL (0-0.2); Basophils % (auto) 0.4 % (0.0-2.0); Eosinophils # (auto) 0 10 ^3/uL (0-0.8); Eosinophils % (auto) 0.3 % (0.0-7.0); Hematocrit 42.1 % (36.0-46.0); Hemoglobin 13.9 g/dL (12.2-16.2); Lymphocytes # (auto) 1.2 10 ^3/uL (0.4-5.4); Lymphocytes % (auto) 10.8 % (10.0-50.0); Mean Corpuscular Hemoglobin 32.8 pg (28.0-32.0); Mean Corpuscular Volume 99.6 fL (80.0-100.0); Monocytes # (auto) 0.4 10 ^3/uL (0-1.3); Neutrophils # (auto) 9.2 10 ^3/uL (1.6-8.6); Neutrophils % (auto) 84.5 % (37.0-80.0); Nucleated Red Blood Cells % 0.3 %; Red Blood Cells 4.22 10^6/uL (4.0-5.20); Red Cell Distribution Width 14.7 % (11.8-14.3); White Blood Cell 10.9 10^3/uL (4.4-10.8)
[2021-04-07] MEDS ORDERED: ONDANSETRON HCL 4 MG/2 ML VIAL IV ONE ×2 (03:00→06:45)
[2021-04-07 03:05] LABS: Albumin 2.8 g/dL (3.4-5.0); Calcium 8.2 mg/dL (8.5-10.1); Potassium 3.7 mmol/L (3.5-5.1)
[2021-04-07 03:09] LABS: BUN/Creatinine Ratio 15.7; Bilirubin, Total 0.5 mg/dL (0.2-1.0); Total Protein 7.9 g/dL (6.4-8.2)
[2021-04-07] MEDS ORDERED: SODIUM CHLORIDE 0.9% 1,000 ML IV ONE (04:00)
[2021-04-07] MEDS ORDERED: IOHEXOL 300 MG/ML 100ML BOTTLE IJ ONE (06:06)
[2021-04-07 10:23] LABS: Urine Bacteria NONE SEEN /hpf (None Seen); Urine Blood 2+ /uL (Negative); Urine WBC 3 /hpf (0 - 5)
[2021-04-07 10:25] LABS: Urine Specific Gravity > 1.050 (1.001-1.035)
[2021-04-07 11:37] VITALS: BP 162/66
[2021-04-07] MEDS ORDERED: AMIODARONE HCL 200 MG TAB PO ONE (13:45)
== END 2021-04-07 13:05 | disposition still patient (30) ==
LOC: ER 02:03 → EDBD 02:03 → ER 13:05
DX: R10.9 Unspecified abdominal pain (principal); R11.2 Nausea with vomiting, unspecified; I11.0 Hypertensive heart disease with heart failure; I50.9 Heart failure, unspecified; I48.91 Unspecified atrial fibrillation; E78.5 Hyperlipidemia, unspecified; Z90.49 Acquired absence of other specified parts of digestive tract; Z90.710 Acquired absence of both cervix and uterus; Z79.899 Other long term (current) drug therapy; Z88.0 Allergy status to penicillin; Z91.018 Allergy to other foods
CPT/HCPCS: 36415; 74177; 80053; 81001; 83690; 84484; 85025; 93005; 96361; 96374; 96376; 99285; J2405; J7030; Q9967